=== PATIENT | male | born 1945 | race Caucasian/White ===

== ENCOUNTER 2020-02-24 12:07 | Outpatient (REF) | payer MEDICARE, OTHER, SELFPAY ==
--- NOTE | 2020-02-24 12:16 | XR_ITS ---
EXAMINATION: XR LUMBOSACRAL SPINE CLINICAL INFORMATION: Low back and right leg pain COMPARISON: None TECHNIQUE: Three views of the lumbosacral spine. FINDINGS: There is normal lumbar segmentation with 5 nonrib-bearing lumbar vertebrae of normal height and normal lumbar lordosis. There is diffuse spondylosis with multilevel degenerative disc and degenerative facet changes. There is variable disc narrowing with variable asymmetric partially bridging osteophytes. There is no focal vertebral compression or spondylolisthesis. No destructive process. The SI joints and visualized sacrum are unremarkable. 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 XR/XR lumbar spine 2-3V IMPRESSION: Diffuse spondylosis with multilevel degenerative disc and degenerative facet changes.
== END 2020-02-24 12:08 | disposition home or self-care (01) ==
LOC: HO.XRAY 12:07
PROVIDERS: PCP Internal Medicine; Visit Provider Chiropractor
DX: M54.5 Low back pain (principal); M79.604 Pain in right leg
CPT/HCPCS: 72100

== ENCOUNTER 2020-11-07 08:14 | Outpatient (REF) | payer MEDICARE, OTHER, SELFPAY ==
--- NOTE | ~2020-11-07 | XR_ITS ---
EXAMINATION: RIGHT HIP. CLINICAL INFORMATION: Pain right hip COMPARISON: . AP pelvis and left hip 11/07/2020 TECHNIQUE: 2 views. 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 No prosthetic loosening seen. The soft tissues are normal. 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 No prosthetic loosening seen.
--- NOTE | ~2020-11-07 | XR_ITS ---
EXAMINATION: RIGHT HIP. CLINICAL INFORMATION: Pain right hip COMPARISON: . AP pelvis and left hip 11/07/2020 TECHNIQUE: 2 views. 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 No prosthetic loosening seen. The soft tissues are normal. 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 No prosthetic loosening seen.
== END 2020-11-07 08:15 | disposition home or self-care (01) ==
LOC: HO.HOSX 08:14
PROVIDERS: Visit Provider Orthopaedic Surgery
DX: Z47.1 Aftercare following joint replacement surgery (principal); Z96.643 Presence of artificial hip joint, bilateral
CPT/HCPCS: 73502; Q3014

== ENCOUNTER 2020-12-27 07:57 | Outpatient (REF) | payer MEDICARE, OTHER, SELFPAY ==
[2020-12-27 08:19] LABS: MANUAL DIFF FLAG NO
[2020-12-27 08:58] LABS: Basophils Percent Auto 0.6 % (0-2); Eosinophils Absolute Auto 0.3 X10*3/uL (0.0-0.4); Eosinophils Percent Auto 6.1 % (0-4); Hematocrit 45.7 % (42-52); Hemoglobin 15.7 g/dl (14.0-18.0); Imm Gran Abs Auto 0.03 X10*3/uL (0.00-0.03); Imm Gran Pct Auto 0.6 % (0.0-0.4); Lymphocytes Absolute Auto 1.1 X10*3/uL (1.2-4.9); Mean Corpuscular HGB Conc 34.4 g/dl (31.0-36.0); Mean Corpuscular Hemoglobin 34.1 pg (27.0-33.0); Mean Corpuscular Volume 99.3 fL (80-98); Mean Platelet Volume 9.9 fL (9.4-12.4); Monocytes Absolute Auto 0.7 X10*3/uL (0.1-1.2); Monocytes Percent Auto 13.2 % (2-11); Neutrophils Absolute Auto 2.9 X10*3/uL (2.0-8.3); Neutrophils Percent Auto 57.5 % (45-73); Platelet Count 182 X10*3/uL (160-400); Red Cell Distribution Width 11.9 % (11.0-16.0); White Blood Count 5.1 X10*3/uL (4.8-10.8)
[2020-12-27 09:26] LABS: Alanine Aminotransferase 22 U/L (0-40); Albumin Level 4.2 g/dL (3.5-5.0); Alkaline Phosphatase 110 U/L (39-117); Anion Gap 11 (12-20); Aspartate Amino Transferase 24 U/L (5-37); Bilirubin Total 0.4 mg/dL (0.0-1.0); Blood Urea Nitrogen 12 mg/dL (9-16); Calcium 8.8 mg/dL (8.4-10.2); Carbon Dioxide 25 mmol/L (22-29); Chloride 103 mmol/L (96-108); Cholesterol 191 mg/dL; Estimated Glomerular Filt Rate > 60; Glucose Random 94 mg/dL (60-115); HDL Cholesterol 69 mg/dL; LDL Cholesterol Calculated 114 mg/dl; Potassium 4.6 mmol/L (3.3-5.1); Sodium 134 mmol/L (135-145); Triglycerides 43 mg/dL
[2020-12-27 09:49] LABS: Prostate Specific Antigen 1.67 ng/mL (<0.05-4.0)
== END 2020-12-27 07:58 | disposition home or self-care (01) ==
LOC: HO.LAB 07:57
PROVIDERS: PCP Internal Medicine; Visit Provider Internal Medicine
DX: K57.90 Diverticulosis of intestine, part unspecified, without perforation or abscess without bleeding (principal); N40.0 Benign prostatic hyperplasia without lower urinary tract symptoms; Z82.49 Family history of ischemic heart disease and other diseases of the circulatory system; Z12.5 Encounter for screening for malignant neoplasm of prostate
CPT/HCPCS: 36415; 80053; 80061; 84153; 85025

== ENCOUNTER 2021-07-25 14:54 | Outpatient (REF) | payer MEDICARE, OTHER, SELFPAY ==
--- NOTE | ~2021-07-25 | XR_ITS ---
EXAMINATION: XR LUMBOSACRAL SPINE CLINICAL INFORMATION: Pain. COMPARISON: Previous x-ray February 2020 TECHNIQUE: Three views of the lumbosacral spine. FINDINGS: Bone alignment is normal. No fracture or dislocation is seen. There is multilevel degenerative spondylosis. There is multilevel degenerative disc disease. 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 There is atherosclerotic disease. XR/XR lumbar spine 2-3V IMPRESSION: Multilevel degenerative changes.
--- NOTE | ~2021-07-25 | XR_ITS ---
EXAMINATION: XR PELVIS CLINICAL INFORMATION: Pain COMPARISON: Previous x-ray October 2020 TECHNIQUE: AP view of the pelvis. 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 No fracture or dislocation is seen. The sacroiliac joints and pubic symphysis are normal. Bones of the pelvis are normal. There are are soft tissue ossifications adjacent to both hip joints. Soft tissues are otherwise normal. XR/XR pelvis 1-2V IMPRESSION: Bilateral hip replacements. Otherwise unremarkable exam.
[2021-07-25 15:27] LABS: Appearance Urine CLEAR; Color Urine YELLOW; Glucose Urine UA NEG (NEG); Leukocyte Esterase Urine NEG (NEG); Nitrite Urine NEG (NEG); PH 5.5 (5.0-8.0); Urine Blood NEG (NEG); Urine Ketones NEG (NEG); Urine Protein NEG (NEG-TRACE)
[2021-07-25 15:51] LABS: Alanine Aminotransferase 15 U/L (0-40); Albumin Level 4.2 g/dL (3.5-5.0); Alkaline Phosphatase 95 U/L (39-117); Anion Gap 14 (12-20); Aspartate Amino Transferase 24 U/L (5-37); Bilirubin Total 0.8 mg/dL (0.0-1.0); Blood Urea Nitrogen 21 mg/dL (9-16); C Reactive Protein 0.12 mg/dL (< or = 0.50); Calcium 9.5 mg/dL (8.4-10.2); Carbon Dioxide 21 mmol/L (22-29); Chloride 101 mmol/L (96-108); Estimated Glomerular Filt Rate > 60; Glucose Random 95 mg/dL (60-115); Potassium 4.8 mmol/L (3.3-5.1); Sodium 131 mmol/L (135-145); Total Protein 7.1 g/dL (6.5-8.0)
== END 2021-07-25 14:55 | disposition home or self-care (01) ==
LOC: HO.LAB 14:54
PROVIDERS: PCP Internal Medicine; Visit Provider Internal Medicine
DX: R10.9 Unspecified abdominal pain (principal); R10.2 Pelvic and perineal pain
CPT/HCPCS: 36415; 72100; 72170; 80053; 81003; 82550; 86140

== ENCOUNTER 2021-09-20 09:00 | Outpatient (RCR) | payer MEDICARE, OTHER, SELFPAY | END 2021-10-24 08:15 | disposition home or self-care (01) | LOC: HO.PT 09:00 | PROVIDERS: PCP Internal Medicine; Visit Provider Internal Medicine | DX: M51.36 Other intervertebral disc degeneration, lumbar region (principal) | CPT/HCPCS: 97110; 97162; 97530 ==

== ENCOUNTER 2022-01-24 08:42 | Outpatient (REF) | payer MEDICARE, OTHER, SELFPAY ==
[2022-01-24 08:52] LABS: MANUAL DIFF FLAG NO
[2022-01-24 08:59] LABS: Basophils Percent Auto 0.7 % (0-2); Eosinophils Absolute Auto 0.3 X10*3/uL (0.0-0.4); Eosinophils Percent Auto 4.5 % (0-4); Hematocrit 48.2 % (42.0-52.0); Hemoglobin 15.9 g/dl (14.0-18.0); Imm Gran Abs Auto 0.04 X10*3/uL (0.00-0.03); Imm Gran Pct Auto 0.7 % (0.0-0.4); Lymphocytes Absolute Auto 1.1 X10*3/uL (1.2-4.9); Lymphocytes Percent Auto 19.4 % (20-40); Mean Corpuscular Hemoglobin 33.4 pg (27.0-33.0); Mean Corpuscular Volume 101.3 fL (80.0-98.0); Mean Platelet Volume 9.5 fL (9.4-12.4); Monocytes Absolute Auto 0.7 X10*3/uL (0.1-1.2); Monocytes Percent Auto 12.6 % (2-11); Neutrophils Absolute Auto 3.6 x10*3/uL (2.0-8.3); Neutrophils Percent Auto 62.1 % (45-73); Platelet Count 181 X10*3/uL (160-400); Red Blood Count 4.76 X10*6/uL (4.60-5.80); Red Cell Distribution Width 11.7 % (11.0-16.0); White Blood Count 5.8 X10*3/uL (4.8-10.8)
[2022-01-24 09:45] LABS: Alanine Aminotransferase 24 U/L (0-40); Albumin Level 4.5 g/dL (3.5-5.0); Alkaline Phosphatase 117 U/L (39-117); Anion Gap 17 (12-20); Aspartate Amino Transferase 25 U/L (5-37); Bilirubin Total 0.7 mg/dL (0.0-1.0); Blood Urea Nitrogen 13 mg/dL (9-16); Calcium 9.4 mg/dL (8.4-10.2); Carbon Dioxide 24 mmol/L (22-29); Chloride 100 mmol/L (96-108); Cholesterol 244 mg/dL; Estimated Glomerular Filt Rate > 60; Glucose Random 92 mg/dL (60-115); HDL Cholesterol 91 mg/dL; LDL Cholesterol Calculated 142 mg/dl; Potassium 4.5 mmol/L (3.3-5.1); Sodium 136 mmol/L (135-145); Total Protein 7.6 g/dL (6.5-8.0); Triglycerides 56 mg/dL
[2022-01-24 09:52] LABS: Prostate Specific Antigen 3.97 ng/mL (<0.05-4.0)
== END 2022-01-24 08:43 | disposition home or self-care (01) ==
LOC: HO.LAB 08:42
PROVIDERS: PCP Internal Medicine; Visit Provider Internal Medicine
DX: Z12.5 Encounter for screening for malignant neoplasm of prostate (principal); K57.90 Diverticulosis of intestine, part unspecified, without perforation or abscess without bleeding; N40.0 Benign prostatic hyperplasia without lower urinary tract symptoms; M54.9 Dorsalgia, unspecified; R53.83 Other fatigue
CPT/HCPCS: 36415; 80053; 80061; 84153; 85025

== ENCOUNTER 2022-02-19 14:01 | Outpatient (REF) | payer MEDICARE, OTHER, SELFPAY ==
[2022-02-19 15:00] LABS: Influenza A PCR NEGATIVE (Negative); Influenza B PCR NEGATIVE (Negative); Resp Syncy Virus RNA Qual PCR NEGATIVE (Negative); SARS COV2 PCR INHOUSE NEGATIVE (Negative)
== END 2022-02-19 14:02 | disposition home or self-care (01) ==
LOC: HO.LNP 14:01
PROVIDERS: Visit Provider Internal Medicine
DX: Z20.822 Contact with and (suspected) exposure to COVID-19 (principal); R05.9 Cough, unspecified; R06.02 Shortness of breath
CPT/HCPCS: 0241U

== ENCOUNTER 2022-02-20 10:24 | Outpatient (REF) | payer MEDICARE, OTHER, SELFPAY ==
--- NOTE | ~2022-02-20 | XR_ITS ---
EXAMINATION: CHEST AND RIGHT RIBS. CLINICAL INFORMATION: Cough, wheezing and rib pain COMPARISON: None TECHNIQUE: Chest 2 views. Right RIBS 3 views. FINDINGS: CHEST: The lungs are well-expanded and clear of acute process. The heart size and pulmonary vascularity is normal. There is moderate spondylosis dorsal spine. No aggressive lytic or sclerotic process seen. RIGHT RIBS: There is no visible acute fracture or bony abnormality. The soft tissues are normal. XR/XR chest 2V IMPRESSION: 1. Unremarkable chest exam. 2. Unremarkable right rib exam. There is no visible acute fracture or bony abnormality.
--- NOTE | ~2022-02-20 | XR_ITS ---
EXAMINATION: CHEST AND RIGHT RIBS. CLINICAL INFORMATION: Cough, wheezing and rib pain COMPARISON: None TECHNIQUE: Chest 2 views. Right RIBS 3 views. FINDINGS: CHEST: The lungs are well-expanded and clear of acute process. The heart size and pulmonary vascularity is normal. There is moderate spondylosis dorsal spine. No aggressive lytic or sclerotic process seen. RIGHT RIBS: There is no visible acute fracture or bony abnormality. The soft tissues are normal. XR/XR ribs RT 2V IMPRESSION: 1. Unremarkable chest exam. 2. Unremarkable right rib exam. There is no visible acute fracture or bony abnormality.
== END 2022-02-20 10:25 | disposition home or self-care (01) ==
LOC: HO.XRAY 10:24
PROVIDERS: PCP Internal Medicine; Visit Provider Internal Medicine
DX: R05.9 Cough, unspecified (principal); R06.2 Wheezing; R07.81 Pleurodynia
CPT/HCPCS: 71046; 71100

== ENCOUNTER 2022-06-02 11:55 | Outpatient (REF) | payer MEDICARE, OTHER, SELFPAY ==
[2022-06-02 14:32] LABS: Prostate Specific Antigen 1.97 ng/mL (<0.05-4.0)
== END 2022-06-02 11:56 | disposition home or self-care (01) ==
LOC: HO.10HDL 11:55
PROVIDERS: Visit Provider Internal Medicine
DX: R35.1 Nocturia (principal); Z12.5 Encounter for screening for malignant neoplasm of prostate
CPT/HCPCS: 36415; 84153

== ENCOUNTER → 2022-06-12 09:57 | Outpatient (REF) | payer MEDICARE, OTHER, SELFPAY ==
--- NOTE | 2022-06-12 10:00 | CA_ITS ---
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 Technically limited study due to off axis views 2. LV systolic function is low normal 55% with impaired relaxation filling pattern 3. Fibrocalcific aortic valve changes noted with normal cardiac valvular Doppler 4. Normal RV systolic pressure 5. No gross pericardial effusion Findings Left Ventricle Normal left ventricular cavity size. There is normal left ventricular wall thickness. The left ventricular systolic function is low normal. The visually estimated ejection fraction is between 50-55%. Spectral Doppler is indicative of an impaired relaxation filling pattern. E/E prime ratio is between 8 and 15 consistent with indeterminate filling pressures. Right Ventricle Normal right ventricular cavity size and systolic function. Atria The left atrium is normal in size. Interatrial shunt cannot be excluded. The right atrium was not well visualized. Aortic Valve There is mild calcification of the aortic valve. There is no aortic valve stenosis. There is no aortic valve regurgitation. Mitral Valve There is mild anterior and posterior mitral leaflet thickening. There is mild mitral annular calcification. There is trace mitral valve regurgitation. There is no mitral valve stenosis. Pulmonic Valve The pulmonic valve was not well visualized. Tricuspid Valve Likely normal tricuspid valve structure and function. The right ventricular systolic pressure is normal. The right ventricular systolic pressure is 10 mmHg. Great Vessels The aorta was not well visualized. The visualized portions of the pulmonary artery and branches are normal. Venous The inferior vena cava is normal in size and collapses greater than 50% with inspiration. Pericardium/Pleural There is no evidence of pericardial effusion. Prior Study Comparison No prior study available for comparison. consider chest CTA to evaluate for thoracic aorta Measurements 2D Linear Measurements IVSd: 0.81 0.6-0.9/0.6-1.0 cm LVIDd: 4.71 3.9-5.3/4.2-5.9 cm LVIDd Index: 2.47 2.4-3.2/2.2-3.1 cm/m2 LVIDs: 3.08 2.0-3.6 cm LVPWd: 0.77 0.7-1.1 cm LA Diam: 2.70 2.7-3.8/3.0-4.0 cm LAIDs Index: 1.41 1.5-2.3 cm/m2 LV Mass: 150.64 67-162/88-224 g LV Mass Index: 78.87 43-95/49-115 g/m2 LVOT Diam: 2.20 3.0+(-)1.3 cm Mitral Valve MV Pk E: 0.59 MV PK A: 0.84 MV Decel Time: 290.00 E/A: 0.70 E'Lateral: 7.18 E'Medial: 5.87 E/E' Med: 10.00 E/E' Lat: 8.20 PHT: 85.00 MVA PHT: 2.59 Decel Van Zandt: 2.02 Aortic Valve AoV Pk Salvador: 1.00 AoV Mn Salvador: 0.71 AoV VTI: 0.21 AoV Pk Grad: 4.00 Aov Mn Grad: 2.00 ROXANN Cont.VTI: 2.82 LVOT LVOT Pk [place]: 0.79 LVOT Mn [place]: 0.54 LVOT VTI: 0.16 LVOT Pk Grad: 2.00 LVOT Mn Grad: 1.00 LVOT Diam: 2.20 LVOT Area: 3.80 Diastolic Function MV Pk E: 0.59 MV Pk A: 0.84 E/A: 0.70 E'Medial: 5.87 E/E' Med: 10.00 E' Laterial: 7.18 E/E' Lat: 8.20 Right Ventricle TAPSE (mm): 18.90 TVS' [place]: 11.10 Tricuspid Valve TR Pk [place]: 1.32 TR Pk Grad: 7.00 RA Press: 3.00 RVSP: 10.00 Great Vessels Aorta Sinus of Valsalva: 3.70 2.0-3.5 cm Ao Asc: 3.90 2.1-3.4 cm Pulmonary Valve PV Pk [place]: 0.52 Peak PV Grad: 1.00 Updated in Other Vendor System with Status of Final Tong Mathis MD electronically signed on 06/12/2022 4:34:22 PM with status of Final
== END ==
LOC: HO.CARD 09:57
PROVIDERS: PCP Internal Medicine; Visit Provider Internal Medicine
DX: Q25.44 Congenital dilation of aorta (principal)
CPT/HCPCS: 93306

== ENCOUNTER 2022-12-03 07:59 | Outpatient (REF) | payer MEDICARE, OTHER, SELFPAY ==
[2022-12-03 08:12] LABS: MANUAL DIFF FLAG NO
[2022-12-03 09:27] LABS: Basophils Percent Auto 0.5 % (0-2); Eosinophils Absolute Auto 0.2 X10*3/uL (0.0-0.4); Eosinophils Percent Auto 4.1 % (0-4); Hematocrit 45.1 % (42.0-52.0); Hemoglobin 15.1 g/dl (14.0-18.0); Imm Gran Abs Auto 0.06 X10*3/uL (0.00-0.03); Imm Gran Pct Auto 1.1 % (0.0-0.4); Mean Corpuscular HGB Conc 33.5 g/dl (31.0-36.0); Mean Corpuscular Hemoglobin 33.6 pg (27.0-33.0); Mean Corpuscular Volume 100.2 fL (80.0-98.0); Mean Platelet Volume 10.2 fL (9.4-12.4); Monocytes Absolute Auto 0.7 X10*3/uL (0.1-1.2); Monocytes Percent Auto 11.8 % (2-11); Neutrophils Absolute Auto 3.6 x10*3/uL (2.0-8.3); Neutrophils Percent Auto 64.5 % (45-73); Platelet Count 216 X10*3/uL (160-400); White Blood Count 5.6 X10*3/uL (4.8-10.8)
[2022-12-03 10:06] LABS: Alanine Aminotransferase 19 U/L (0-40); Albumin Level 4.1 g/dL (3.5-5.0); Alkaline Phosphatase 94 U/L (39-117); Anion Gap 12 (12-20); Aspartate Amino Transferase 32 U/L (5-37); Bilirubin Total 0.4 mg/dL (0.0-1.0); Blood Urea Nitrogen 14 mg/dL (9-16); Calcium 9.3 mg/dL (8.4-10.2); Carbon Dioxide 25 mmol/L (22-29); Chloride 100 mmol/L (96-108); Cholesterol 206 mg/dL (<200); Estimated Glomerular Filt Rate > 60; Glucose Fasting 89 mg/dL (60-99); HDL Cholesterol 87 mg/dL (>40); LDL Cholesterol Calculated 111 mg/dL (<100); Sodium 132 mmol/L (135-145); Total Protein 7.6 g/dL (6.5-8.0); Triglycerides 40 mg/dL (<150)
== END 2022-12-03 08:00 | disposition home or self-care (01) ==
LOC: HO.LAB 07:59
PROVIDERS: PCP Internal Medicine; Visit Provider Internal Medicine
DX: M54.9 Dorsalgia, unspecified (principal); N40.0 Benign prostatic hyperplasia without lower urinary tract symptoms; K57.90 Diverticulosis of intestine, part unspecified, without perforation or abscess without bleeding; Z82.49 Family history of ischemic heart disease and other diseases of the circulatory system
CPT/HCPCS: 36415; 80053; 80061; 85025